=== PATIENT | male | born 1995 | race Caucasian/White ===

== ENCOUNTER 2021-10-17 08:47 | Emergency (ER) | payer BC ==
[2021-10-17] MEDS ORDERED: Acetaminophen 500 MG Tab PO ONE (09:04)
== END 2021-10-17 10:00 | disposition home or self-care (01) ==
LOC: FB.ED 08:47
DX: R51.9 Headache, unspecified (principal); R04.0 Epistaxis
CPT/HCPCS: 99281; 99283; A9270-GY